=== PATIENT | male | born 1975 | race Caucasian/White ===

== ENCOUNTER 2024-02-10 11:46 | Emergency (ER) | payer OTHER ==
[~2024-02-10] VITALS: Ht 170.2 cm; Wt 118.4 kg
[2024-02-10] MEDS ORDERED: RX Prepack Albuterol 1 PREPACK/6.7 GM INH UD ONE (12:20)
== END 2024-02-10 12:15 | disposition home or self-care (01) ==
LOC: ER 11:46
DX: U07.1 COVID-19 (principal)
CPT/HCPCS: 87081; 87430; 99282; A9270